=== PATIENT | female | born 1945 | race Caucasian/White ===

== ENCOUNTER 2017-05-05 06:38 | Day surgery (SDC) | payer MEDICARE, BC ==
[2017-05-05] MEDS ORDERED: Dextrose 5%-Lactated Ringers 1,000 ML IV SCH (07:30)
[2017-05-05] MEDS ORDERED: Glycopyrrolate 0.2 MG/ML 2 ML SYRINGE IVPUSH ONE (08:00)
[2017-05-05] MEDS ORDERED: Midazolam 1 MG/ML 2 ML SDV ONE (08:08)
[2017-05-05] MEDS ORDERED: fentaNYL 100 MCG/2 ML SDV ONE (08:08)
[2017-05-05] MEDS ORDERED: Propofol 200 MG/20 ML SDV ONE (08:08)
[2017-05-05 10:29] VITALS: BP 106/52
--- NOTE | 2017-05-09 12:42 | OR ---
DATE OF PROCEDURE: 05/05/2017 PREOPERATIVE DIAGNOSIS: Gastroesophageal reflux disease associated with large hiatal hernia. POSTOPERATIVE DIAGNOSES: 1. 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 2. Mild antral gastritis. OPERATIVE PROCEDURE: Esophagogastroduodenoscopy with, 1. Biopsies of antrum for CLOtest. 2. Biopsies of esophagogastric junction for histologic evaluation. ANESTHESIA: IV sedation. INDICATION FOR PROCEDURE: A 72-year-old noted on recent CT scan to have a large hiatal hernia and having progressive reflux symptoms, was also having quite a bit in way of cough and does note that she has intermittent aspiration of bilious contents. She is not on any antisecretory medications. She has somewhat of a severe reaction to many medications and does not wish to be started on any antisecretory medications. Plan is to proceed with an upper GI endoscopy with biopsies as indicated. Potential risks including bleeding and perforation were discussed and the patient wishes to proceed. DETAILS OF PROCEDURE: The patient was taken to the operating room and placed in a left lateral decubitus position. IV sedation was administered, after which the upper GI endoscope was passed orally through the length of the esophagus and into the stomach with retroflexion view of the fundus, thereafter through the pyloric channel into the proximal duodenum. Findings included some mild reddening of the hypopharynx, particularly the area of the piriform sinus. The ultrasound sphincter was unremarkable as was the esophageal body. There was a fairly large hiatal hernia measuring around 1/3rd of the stomach, being in the chest. This was associated with quite a bit in the way of gross inflammation at the esophagogastric junction without erosions, ulcers, or other signs of neoplasia. No obstruction was noted. Within the antrum, there was some mild redness of the pyloric channel and duodenum at the junction of the third and fourth portions were unremarkable. At this point, biopsies were taken from the antrum and sent for CLOtest for H. pylori. Multiple biopsies were obtained from esophagogastric junction, sent for histologic evaluation. Minimal bleeding from the biopsy sites was seen and the procedure then concluded. The patient and have voiced interest in having this surgically corrected given her dislike for being on much in the way of medications. Her has had a Mavis fundoplication by us previously and they have the sense of how things go postoperatively. He has had some dysphagia and such, but overall has done well. We will see the patient back this Friday to discuss treatment options. Armando Carey MD /[id number]
== END 2017-05-05 10:47 | disposition home or self-care (01) ==
LOC: JP.SDS 06:38
PROVIDERS: ATTEND Surgery
DX: K31.89 Other diseases of stomach and duodenum (principal); K44.9 Diaphragmatic hernia without obstruction or gangrene; E16.2 Hypoglycemia, unspecified; F41.9 Anxiety disorder, unspecified; Z88.1 Allergy status to other antibiotic agents; Z88.2 Allergy status to sulfonamides; Z88.8 Allergy status to other drugs, medicaments and biological substances; Z90.710 Acquired absence of both cervix and uterus
CPT/HCPCS: 43239; 87081; J2250; J2704; J3010; J7042; 88305

== ENCOUNTER 2017-05-22 05:18 | Inpatient (IN) | payer MEDICARE, BC ==
[2017-05-22] MEDS: Dextrose 5%-Lactated Ringers 1,000 ML IV SCH ×4 (07:03→20:53)
[2017-05-22] MEDS ORDERED: fentaNYL 250 MCG/5 ML SDV ONE (07:12)
[2017-05-22] MEDS ORDERED: Midazolam 1 MG/ML 2 ML SDV ONE (07:12)
[2017-05-22] MEDS ORDERED: Dexamethasone 4 MG/ML SDV ONE (07:16)
[2017-05-22] MEDS ORDERED: Neostigmine Methylsulfate 1 MG/ML 5 ML Syringe ONE (07:16)
[2017-05-22] MEDS ORDERED: Rocuronium 50 MG/5 ML Vial ONE (07:16)
[2017-05-22] MEDS ORDERED: Propofol 200 MG/20 ML SDV ONE (07:16)
[2017-05-22] MEDS ORDERED: Succinylcholine/Normal Saline 200 MG/10 ML Syringe ONE (07:16)
[2017-05-22] MEDS ORDERED: Ondansetron 4 MG/2 ML SDV ONE (07:16)
[2017-05-22] MEDS ORDERED: HYDROmorphone/Normal Saline 15 MG/30 ML PCA IV PRN (07:21)
[2017-05-22] MEDS ORDERED: Naloxone 0.4 MG/ML SDV IVPUSH PRN (07:21)
[2017-05-22] MEDS ORDERED: Naloxone 0.4 MG/ML SDV IV PRN (07:24)
[2017-05-22] MEDS ORDERED: Bupivacaine 0.5%/EPINEPHrine 1:200,000 50 ML MDV ONE (07:51)
[2017-05-22] MEDS ORDERED: Lidocaine 1% with EPINEPHrine 1:100,000 50 ML MDV ONE (07:51)
[2017-05-22] MEDS ORDERED: diphenhydrAMINE 50 MG/ML SDV IVPUSH PRN (09:10)
[2017-05-22] MEDS ORDERED: Metoclopramide 10 MG/2 ML SDV IVPUSH PRN (10:43)
[2017-05-22] MEDS ORDERED: Ondansetron 4 MG/2 ML SDV IVPUSH PRN (10:43)
[2017-05-22] MEDS ORDERED: Diazepam 5 MG Tab PO PRN (10:44)
[2017-05-22] MEDS ORDERED: Atenolol 25 MG Tab PO SCH (12:00)
[2017-05-22] MEDS ORDERED: ATENOLOL 25 MG PO SCH (21:00)
--- NOTE | 2017-05-23 04:18 | OR ---
DATE OF PROCEDURE: 05/22/2017 PREOPERATIVE DIAGNOSIS: Large paraesophageal diaphragmatic hernia with gastroesophageal reflux disease, refractory to medical management. POSTOPERATIVE DIAGNOSES: 1. Large paraesophageal diaphragmatic hernia with gastroesophageal reflux disease, refractory to medical management. 2. Mediastinal lipoma. OPERATIVE PROCEDURES: 1. Laparoscopic Mavis fundoplication with repair of paraesophageal diaphragmatic hernia with mesh (23728). 2. Excision of mediastinal lipoma (69703). ANESTHESIA: General. ASSISTANTS: 1. Wendy Fofana PA-C. 2. CED Catherine student. INDICATION FOR PROCEDURE: This is a 72-year-old female, presenting with increasingly symptomatic quite large diaphragmatic hernia. This has been becoming increasingly symptomatic. She is relatively intolerant of most medications and at this point wishes to proceed with surgical correction of the problem. Potential risks including bleeding; infection; injury to structures in the area; possible problems with fundoplication such as dysphagia; gas-bloat syndrome; disorders of gastric emptying rate; as well as possibility of incomplete relief of reflux symptoms were all gone over along with remote possibility of cardiopulmonary, septic, or hemorrhagic complications leading to ; and the patient wishes to proceed. DETAILS OF PROCEDURE: The patient was taken to the operating room and placed in the supine position. After general endotracheal anesthesia was induced, she was converted to lithotomy position. Bright catheter was inserted and the abdomen prepped and draped. A 15 cm inferior and 5 cm left of xiphoid process, a transverse incision was made and the peritoneal cavity entered under direct vision with an Optiview trocar and inflated to 15 mmHg pressure of CO2. Laparoscope was then reinserted. No underlying trocar insertion site injuries were seen. Following this, 4 additional trocars were placed across the mid abdomen. The liver was retracted anteriorly and as suspected the patient was noted to have a quite large paraesophageal diaphragmatic hernia. This included some prolapse of some omentum into the hernia and the overall size roughly size of a baseball. Fortunately, the hernia reduced itself quite nicely along the edges of the peritoneal defect to the right anteriorly and to the left. The peritoneum was incised and reflected downward. This allowed dissection of the distal esophagus from the crura on each side and retroesophageal window established. The remaining attachments of the distal esophagus and mediastinum were taken down, which eventually resulted in excellent shortening of the length of around 4 to 5 cm. During the course of the dissection, the mediastinal lipoma was present posteriorly and it was excised to facilitate more adequate crural repair as well as confirmed histologic nature. At this point, the crural repair was accomplished with a series of 0 Ethibond sutures reinforced with PTFE pledgets. Because of the large size of the defect, a Phasix mesh was then selected. This was then cut such that it would lay across the crural repair along the sides of the esophagus on each side and not anterior to it. The mesh was then affixed with some titanium tacking screws, which appeared to satisfactorily locate the mesh to the point in fixation. The omentum was then initially divided away from the mid body of the stomach and then using Harmonic scalpel, this continued up through the short gastric vessels including the highest and posterior short gastric vessels, this resulted in a nicely mobile fundus, latter was retrieved through the retroesophageal window. Anesthesia then placed a guidewire orally through the length of esophagus into the stomach and over this, a 54-Japanese Savary dilator was placed. A 2 cm 3-stitch fundoplication was accomplished with 0 Ethibond sutures, reinforced with PTFE pledgets with each of these suture included a bite of the underlying esophagus to help fix it in position. Two sutures were then placed, one on the left and one on the right side of the fundoplication to the overlying diaphragm as well with the same stitch pledget combination. On additional stitch was then placed entering the stomach as it was coming up for the fundoplication to the underlying stomach again to help fix that stomach from migrating upward relatively to the remainder of the overlying stomach as it came across the midline. At this point, no further problems noted. These dilators and wires were removed. The patient noted to have adequately floppy fundoplication. The trocars were removed and the peritoneal cavity deflated. Fascia at the 12 mm site was closed with 0 Vicryl stitch and the skin at each incision with 6-0 Vicryl skin stitch. Dressing was applied. The patient was taken to the recovery room in satisfactory condition. Physician assistant principal, Wendy Fofana, played an essential role in assisting in this case, helping to position the patient, retract structures as needed, as well as suturing and cutting sutures when indicated. Her presence improved patient safety and decreased the operative time. Armando Carey MD /[id number]
[2017-05-23] MEDS: Dextrose 5%-Lactated Ringers 1,000 ML IV SCH (04:21)
[2017-05-23] MEDS ORDERED: POTASSIUM GLUCONATE 550 MG PO SCH (09:00)
[2017-05-23] MEDS ORDERED: Lactated Ringers 1,000 ML IV SCH (09:15)
[2017-05-23 14:32] VITALS: BP 138/68
--- NOTE | 2017-05-24 02:34 | DISCH ---
ADMISSION DIAGNOSIS: Large paraesophageal diaphragmatic hernia. DISCHARGE DIAGNOSIS: Laparoscopic Mavis fundoplication with repair of paraesophageal diaphragmatic hernia, and excision of mediastinal lipoma. Date of surgery is 05/22/2017. HISTORY: Rolanda Pritchard is a 72-year-old female with longstanding history of GERD refractory to medical management. After preoperative evaluation and discussion of possible risks and possible complications, she wished to proceed with surgical procedure. HOSPITAL COURSE: Rolanda had her surgery on 05/22/2017. She had no operative complications. On postop day #1, she was started on a clear liquid diet advanced to a full liquid diet. Her pain was well managed. Her activity was good. She received dietary instruction and she was ready to be discharged to home. PHYSICAL EXAMINATION: GENERAL: Rolanda is a 72-year-old female. VITAL SIGNS: Height is 5 feet 4 inches. Weight is 119 pounds. TPR is 97.9, 61, 18. Blood pressure 148/61. HEENT: Negative. NECK: Supple. HEART: Regular rate and rhythm. LUNGS: Clear. ABDOMEN: Dressings dry and intact. Abdominal binder is on. EXTREMITIES: Without peripheral edema. DISPOSITION: Discharged to home. CONDITION: Stable and improving. FOLLOWUP: Followup appointment with Wendy Fofana PA-C, on 06/02/2017 at 09:30 a.m. HOME MEDICATIONS: Oxycodone 5 mg take one half q.6 hours p.r.n. pain. Continue her home medications. Ascorbic acid 1 tablet daily, atenolol 25 mg oral daily, vitamin D3 one tablet oral daily, fish oil 1 tablet oral daily, magnesium 500 mg oral daily, potassium gluconate 500 mg oral daily, red yeast rice 1200 mg daily, and tumeric root extract 720 mg oral daily. DIET: After discharge is a full liquid diet for 2 weeks. Drink 8 to 10 glasses of water a day. ACTIVITY: No lifting greater than 10 pounds for 2 weeks. Walk short distances inside your home 6 times a day, then increase. Shower/bathing, may shower. DISCHARGE INSTRUCTIONS: Notify provider if any fever, increased pain, nausea, vomiting, wound incision care. Keep site clean and dry. Wear abdominal binder for 2 weeks, and then as tolerated. Use incentive spirometer 10 times every hour while awake for 2 weeks.
== END 2017-05-23 19:11 | disposition home or self-care (01) | DRG 328 ==
LOC: JP.SDSSCHI 05:18 → JP.SDS 05:18 → EDSTATUS 08:30 → JP.2SS 08:55
PROVIDERS: ADMIT Surgery; ATTEND Surgery
PROC: 0BUS4JZ (ICD-10-PCS; principal; 2017-05-22)
PROC: 0BUR4JZ (ICD-10-PCS; principal; 2017-05-22)
PROC: 0WBC4ZX Excision of Mediastinum, Percutaneous Endoscopic Approach, Diagnostic (ICD-10-PCS; principal; 2017-05-22)
PROC: 0DV44ZZ Restriction of Esophagogastric Junction, Percutaneous Endoscopic Approach (ICD-10-PCS; principal; 2017-05-22)
DX: K21.9 Gastro-esophageal reflux disease without esophagitis (principal); K44.9 Diaphragmatic hernia without obstruction or gangrene; D17.39 Benign lipomatous neoplasm of skin and subcutaneous tissue of other sites; I10 Essential (primary) hypertension
CPT/HCPCS: 88304; 94762; A9270-GY; C1781; J1100; J1170; J1200; J2250; J2405; J2704; J3010; J7042

== ENCOUNTER 2018-04-17 21:58 | Emergency (ER) | payer MEDICARE, BC ==
[2018-04-17 22:53] VITALS: BP 140/63
--- NOTE | 2018-04-18 00:11 | EDM.PDOC ---
ED HPI GENERAL MEDICAL PROBLEM - General Chief Complaint: Cardiovascular Problem Stated Complaint: IRREGULAR HEARTBEAT Time Seen by Provider: 04/17/18 23:54 Source of Information: Reports: Patient History Limitations: Reports: No Limitations - History of Present Illness INITIAL COMMENTS - FREE TEXT/NARRATIVE: This patient came to the hospital saying that her heart was jumping around. It began last year after hiatal hernia surgery. She feels like occasionally there is just sort of jumps normally it goes on for a little while and then stops but this week she can't seem to get it to stop so it's been going on for the week. She said she takes metoprolol for the same thing. She denied any history of atrial fibrillation or other cardiac disorder - Related Data Allergies Allergy/AdvReac Type Severity Reaction Status Date / Time acetaminophen [From Tylenol] Allergy Cannot Verified 05/05/17 07:27 Remember amoxicillin Allergy Hives Verified 07/22/16 13:31 chlordiazepoxide Allergy Cannot Verified 07/22/16 13:31 Remember doxycycline Allergy Rash Verified 07/22/16 13:31 gabapentin Allergy Cannot Verified 05/05/17 07:43 Remember glycopyrrolate Allergy Itching Verified 05/08/17 07:33 milnacipran HCl Allergy Other Verified 07/22/16 13:31 [From Savella] naproxen [From Aleve] Allergy Cannot Verified 05/05/17 07:27 Remember Sulfa (Sulfonamide Allergy Cannot Verified 07/22/16 13:31 Antibiotics) Remember pain medications Allergy Cannot Uncoded 05/05/17 07:27 Remember Home Meds: Home Meds Ascorbic Acid [Vitamin C] 1 tab PO DAILY 07/23/16 [History] Cholecalciferol (Vitamin D3) [Vitamin D3] 1 tab PO DAILY 07/23/16 [History] Fish Oil/Borage/Flax/Om3,6,9#1 [[place]ster 3-6-9 Complex Softgel] 1 tab PO DAILY [History] Magnesium 500 mg PO DAILY 07/23/16 [History] Red Yeast Rice 1,200 mg PO DAILY 07/23/16 [History] Turmeric Root Extract [Turmeric] 720 mg PO DAILY 07/23/16 [History] Potassium Gluconate 500 mg PO DAILY 05/05/17 [History] Metoprolol Tartrate [Lopressor] 50 mg PO BID 04/17/18 [History] Past Medical History HEENT History: Reports: Impaired Vision Other HEENT History: wears glasses Cardiovascular History: Reports: Hypertension Gastrointestinal History: Reports: GERD, Hiatal Hernia, Other (See Below) Other Gastrointestinal History: cough Genitourinary History: Reports: None [employer] WORKER History: Reports: Musculoskeletal History: Reports: Back Pain, Chronic, Fibromyalgia, Neck Pain, Chronic Psychiatric History: Reports: Anxiety Endocrine/Metabolic History: Reports: Other (See Below) Other Endocrine/Metabolic History: hypoglycemic - Infectious Disease History Infectious Disease History: Reports: Chicken Pox - Past Surgical History HEENT Surgical History: Reports: None Cardiovascular Surgical History: Reports: None GI Surgical History: Reports: Colonoscopy, EGD, Mavis Fundoplication Female Surgical History: Reports: Hysterectomy Endocrine Surgical History: Reports: None Musculoskeletal Surgical History: Reports: None Dermatological Surgical History: Reports: None Social & Family History - Family History Family Medical History: Noncontributory Cardiac: Reports: [place] Musculoskeletal: Reports: Arthritis Endocrine/Metabolic: Reports: Diabetes, Type I Oncologic: Reports: Leukemia - Tobacco Use Smoking Status *Q: Never Smoker Second Hand Smoke Exposure: No - Caffeine Use Caffeine Use: Reports: None - Recreational Drug Use Recreational Drug Use: No ED ROS GENERAL - Review of Systems Review Of Systems: See Below Constitutional: Reports: No Symptoms HEENT: Reports: No Symptoms Respiratory: Reports: No Symptoms. Denies: Shortness of Breath Cardiovascular: Reports: Palpitations. Denies: Chest Pain, Dyspnea on Exertion , Edema Endocrine: Reports: No Symptoms GI/Abdominal: Reports: No Symptoms : Reports: No Symptoms ED EXAM, GENERAL - Physical Exam Exam: See Below Exam Limited By: No Limitations General Appearance: Alert, WD/WN, No Apparent Distress Eye Exam: Bilateral Eye: Normal Inspection Throat/Mouth: Normal Inspection Neck: Normal Inspection. No: Thyromegaly Respiratory/Chest: No Respiratory Distress Cardiovascular: Regular Rate, Rhythm, No Murmur, Other (Monitor shows a very rare premature atrial contraction. Each time she has a PAC she indicates that it jumped) Peripheral Pulses: 2+: Radial (L), Radial (R) GI/Abdominal: Non-Tender Extremities: Normal Inspection Neurological: Alert, Oriented, Sensory/Motor Deficit Skin Exam: Warm, Dry Course - Vital Signs Last Recorded V/S: Last Vital Signs Temp 35.9 C 04/17/18 22:52 Pulse 70 04/17/18 22:52 Resp 16 04/17/18 22:52 BP 140/63 04/17/18 22:52 Pulse Ox 98 04/17/18 22:52 - Re-Assessments/Exams Free Text/Narrative Re-Assessment/Exam: 04/24/18 18:29 I explained about premature atrial contractions. I discussed why she would feel a. After each PAC. I think the lady understood. She is aware the are benign. I did suggest that we do some basic lab work and thyroid functions although I believe the thyroid functions could not be done tonight but the patient didn't want to wait around for those and so she'll follow-up with her doctor for this. Departure - Departure Time of Disposition: 00:10 Disposition: Home, Self-Care 01 Condition: Fair Clinical Impression: Palpitations Instructions: Palpitations, [id number] Referrals: Pramod Tejada Sr, MD [Primary Care Provider] - Forms: ED Department Discharge Additional Instructions: You are having premature atrial contractions and a rare premature ventricular contractions. Any kind of a stimulating medication or foods containing caffeine can tend to do this. Hyperthyroidism can also do this so I suggest you get your thyroid function tested. The premature atrial contractions cause palpitations but they're not dangerous
== END 2018-04-18 00:28 | disposition home or self-care (01) ==
LOC: JP.ED 21:58
DX: R00.2 Palpitations (principal); I10 Essential (primary) hypertension; K21.9 Gastro-esophageal reflux disease without esophagitis; Z79.899 Other long term (current) drug therapy; Z88.2 Allergy status to sulfonamides; Z88.1 Allergy status to other antibiotic agents; Z88.6 Allergy status to analgesic agent; Z88.8 Allergy status to other drugs, medicaments and biological substances
CPT/HCPCS: 99284

== ENCOUNTER 2023-10-31 05:57 | Day surgery (SDC) | payer MEDICARE ==
[2023-10-31] MEDS: Sodium Chloride 0.9% 1,000 ML IV SCH (06:41)
[2023-10-31] MEDS ORDERED: Propofol 200 MG/20 ML SDV ONE (07:11)
[2023-10-31] MEDS ORDERED: fentaNYL 100 MCG/2 ML SDV ONE (07:11)
[2023-10-31 08:27] VITALS: BP 112/53; PULSE 60
== END 2023-10-31 08:55 | disposition home or self-care (01) ==
LOC: JP.SDS 05:57
PROVIDERS: ATTEND Internal Medicine
DX: I10 Essential (primary) hypertension (principal); F41.9 Anxiety disorder, unspecified; Z88.0 Allergy status to penicillin; Z88.1 Allergy status to other antibiotic agents; Z88.8 Allergy status to other drugs, medicaments and biological substances
CPT/HCPCS: J2704; J3010; J7030

== ENCOUNTER → 2024-12-16 | Day surgery (SDC) | payer MEDICARE ==
[~2024-12-16] MED LIST: Propofol 200 MG/20 ML SDV ONE; fentaNYL 50 MCG/ML SDV ONE
[2024-12-16] MEDS: Lactated Ringers 1,000 ML IV SCH (06:45)
[2024-12-16 08:37] VITALS: BP 113/65; PULSE 75
== END ==
LOC: JP.SDS 05:55
PROVIDERS: ATTEND Internal Medicine
DX: R10.9 Unspecified abdominal pain (principal); K44.9 Diaphragmatic hernia without obstruction or gangrene; I10 Essential (primary) hypertension; K21.9 Gastro-esophageal reflux disease without esophagitis
CPT/HCPCS: 43235; J2704; J3010; J7120; 00731-QZ